=== PATIENT | female | born 1995 | race Caucasian/White ===

== ENCOUNTER → 2017-12-28 14:41 | Outpatient (CLI) | payer OTHER, MEDICAID, SELFPAY ==
[2017-12-28 15:55] LABS: Add Manual Diff / Slide Review NO; Basophils Percent Auto 0.7 % (0-2); Eosinophils Percent Auto 1.9 % (2-4); Hematocrit 38.5 % (36-46); Hemoglobin 13.1 g/dL (12.0-16.0); Lymphocytes Percent Auto 21.9 % (25-40); Mean Corpuscular HGB Conc 33.9 % (30-36); Mean Corpuscular Hemoglobin 28.8 PG (26-34); Mean Corpuscular Volume 84.9 fL (80-100); Monocytes Percent Auto 5.4 % (3-14); Neutrophils Absolute Auto 5300 /uL (3000-5900); Neutrophils Percent Auto 70.1 % (50-75); Platelet Count 245 X10^3/uL (150-400); Red Blood Cell Count 4.54 X10^6/uL (4.0-5.2); Red Cell Distribution Width 13.8 % (11.6-14.8); White Blood Cell Count 7.6 X10^3/uL (4.5-11.0)
[2017-12-28 15:57] LABS: Alanine Aminotransferase 43 IU/L (9-52); Albumin 4.7 g/dL (3.5-5.0); Albumin Globulin Ratio 1.6 (1.0-2.8); Alkaline Phosphatase 58 U/L (38-126); Aspartate Aminotransferase 30 IU/L (14-36); BUN Creatinine Ratio 14.3 (6-22); Bilirubin Total 0.5 mg/dL (0.2-1.3); Blood Urea Nitrogen 10 mg/dL (7-17); Calcium 9.8 mg/dL (8.4-10.2); Carbon Dioxide 27 mmol/L (22-32); Chloride 103 mmol/L (98-107); Estimated Glomerular Filt Rate > 60.0 mL/min (>60); Glucose 118 mg/dL (70-100); HEMOLYSIS < 15 (0-50); Potassium 4.5 mmol/L (3.4-5.1); Sodium 142 mmol/L (137-145); Total Protein 7.7 g/dL (6.3-8.2)
[2017-12-28 16:11] LABS: Free T3, Triiodothyronine Free 3.26 pg/mL (2.77-5.27); Free T4, Direct Thyroxine 1.09 ng/dL (0.78-2.19)
[2017-12-28 16:12] LABS: Vitamin D 25 Hydroxy (D3) 25.2 ng/mL (30.0-100.0)
[2017-12-28 16:25] LABS: Thyroid Stimulating Hormone 2.78 uIU/mL (0.47-4.68)
== END ==
PROVIDERS: PCP Physician Assistant; Visit Provider Physician Assistant
DX: E03.9 Hypothyroidism, unspecified (principal); E55.9 Vitamin D deficiency, unspecified; E66.9 Obesity, unspecified
CPT/HCPCS: 36415; 80053; 82306; 84439; 84443; 84481; 85025

== ENCOUNTER 2018-06-24 19:35 | Emergency (ER) | payer OTHER, MEDICAID, SELFPAY ==
[2018-06-24 19:38] VITALS: BP 125/80; PULSE 83; RESP 18; TEMP 36.6; O2SAT 98; BMI 43.2
--- NOTE | 2018-06-24 20:42 | ED.HA ---
HPI - Headache <JONY High - Last Filed: 06/24/18 22:21> General Chief Complaint: Headache Stated Complaint: DIZZY HEADACHE NAUSEA NUMBNESS OF HEAD AND FEET Time Seen by Provider: 06/24/18 20:13 Source: patient Mode of arrival: ambulatory Limitations: no limitations History of Present Illness HPI Narrative: 22-year-old healthy female that is a nonsmoker here for complaint of a feeling of vertigo and fullness in her head that started this morning. She denies any pain. She does report having some nausea with the vertigo. She denies any ear pain. No vomiting. No fevers no chills. She denies any stressors or relievers of her symptoms. She reports when she turns her head from side to side to quickly that she has increase of her vertigo. She denies any other concerns or complaints at this a timeframe. No chest pain no shortness of breath. Related Data Previous Rx's Medication Instructions Recorded meclizine 25 mg PO BID PRN #14 tab 06/24/18 Allergies Allergy/AdvReac Type Severity Reaction Status Date / Time No Known Drug Allergies Allergy Verified 06/24/18 19:45 Review of Systems <JONY High - Last Filed: 06/24/18 22:21> Constitutional Denies chills, Denies fatigue, Denies fever(s), Denies lethargy and Denies weakness Eyes Denies change in vision, Denies eye discharge, Denies irritation and Denies loss of vision ENT Ears, Nose, Mouth, and Throat: Denies change in voice, Denies neck pain and Denies sore throat Cardiovascular Denies dyspnea and Denies dyspnea on exertion Comments: Vertigo Respiratory Denies cough, Denies dyspnea, Denies dyspnea on exertion and Denies wheezing Gastrointestinal Gastrointestinal: Denies abdominal pain, Denies change in bowel habits, Denies diarrhea, Denies nausea and Denies vomiting Genitourinary Denies hematuria, Denies flank pain, Denies urinary incontinence and Denies urinary urgency Musculoskeletal Denies neck pain Integumentary/Breasts Denies pruritus, Denies erythema, Denies rash and Denies wounds Neurologic Denies confusion, Denies loss of vision and Denies weakness Psychiatric Denies anxiety, Denies confusion, Denies depression, Denies homicidal ideation and Denies suicidal ideation Endocrine Denies fatigue and Denies flushing Hematologic/Lymphatic Denies easy bruising Allergic/Immunologic Denies wheezing Exam <JONY High - Last Filed: 06/24/18 22:21> Initial Vital Signs Initial Vital Signs: Vital Signs Temperature 97.9 F 06/24/18 19:38 Pulse Rate 83 06/24/18 19:38 Respiratory Rate 18 06/24/18 19:38 Blood Pressure 125/80 06/24/18 19:38 Pulse Oximetry 98 06/24/18 19:38 Const General: cooperative and well developed Nutritional Appearance: well nourished Orientation: alert, awake, oriented x3 and not confused HENOK Mouth: oral mucosae normal and mucous membranes abnormal Eyes Conjunctivae: conjunctivae normal Sclera: sclerae normal Pupils: PERRL EOM: EOM intact bilaterally Resp Effort & Inspection: normal respiratory effort, able to speak in complete sentences, no respiratory distress and no use of accessory muscles Auscultation: clear to auscultation bilaterally, no rales, no rhonchi and no wheezes Cardio Rate: regular rate Rhythm: regular rhythm Heart Sounds: no click, no gallops, no murmurs and no rubs Pulses: normal peripheral pulses Skin General: no rashes or lesions noted, No jaundice and No petechiae Neuro General: alert, oriented x3, gait normal and no focal motor deficits Speech: speech normal <Sanjana Cano DO - Last Filed: 06/25/18 00:05> Initial Vital Signs Initial Vital Signs: Vital Signs Temperature 97.9 F 06/24/18 19:38 Pulse Rate 83 06/24/18 19:38 Respiratory Rate 18 06/24/18 19:38 Blood Pressure 125/80 06/24/18 19:38 Pulse Oximetry 98 06/24/18 19:38 Course <JONY High - Last Filed: 06/24/18 22:21> Orders Ordered: ED Orders 06/24/18 20:51 CT head/brain wo con Stat EKG-12 Lead Stat 06/24/18 20:55 XR chest 1V Stat 06/24/18 21:11 Complete Blood Count AUTO DIFF Stat Comprehensive Metabolic Panel Stat Troponin I Stat Discontinued Medications Meclizine HCl (Antivert) 25 mg PO NOW ONE Stop: 06/24/18 20:52 Last Admin: 06/24/18 21:14 Dose: 25 mg Vital Signs - 8 hr 06/24/18 19:38 06/24/18 22:17 Temperature 97.9 F Pulse Rate 83 78 Respiratory Rate 18 14 Blood Pressure 125/80 Blood Pressure [Left Arm] 131/76 Blood Pressure [Right Arm] 131/76 Pulse Oximetry 98 100 <Sanjana Cano DO - Last Filed: 06/25/18 00:05> Orders Ordered: ED Orders 06/24/18 20:51 CT head/brain wo con Stat EKG-12 Lead Stat 06/24/18 20:55 XR chest 1V Stat 06/24/18 21:11 Complete Blood Count AUTO DIFF Stat Comprehensive Metabolic Panel Stat Troponin I Stat Discontinued Medications Meclizine HCl (Antivert) 25 mg PO NOW ONE Stop: 06/24/18 20:52 Last Admin: 06/24/18 21:14 Dose: 25 mg Vital Signs - 8 hr 06/24/18 19:38 06/24/18 22:17 Temperature 97.9 F Pulse Rate 83 78 Respiratory Rate 18 14 Blood Pressure 125/80 Blood Pressure [Left Arm] 131/76 Blood Pressure [Right Arm] 131/76 Pulse Oximetry 98 100 MDM - Headache <JONY High - Last Filed: 06/24/18 22:21> Lab Data Result diagrams: 06/24/18 21:11 06/24/18 21:11 Lab Results 06/24/18 06/24/18 Range/Units 21:11 21:11 WBC 8.2 (4.5-11.0) X10^3/uL RBC 4.55 (4.0-5.2) X10^6/uL Hgb 13.0 (12.0-16.0) g/dL Hct 38.2 (36-46) % MCV 83.8 (80-100) fL MCH 28.5 (26-34) PG MCHC 33.9 (30-36) % RDW 13.5 (11.6-14.8) % Plt Count 267 (150-400) X10^3/uL Neut % (Auto) 61.1 (50-75) % Lymph % (Auto) 28.5 (25-40) % [place] % (Auto) 7.0 (3-14) % Eos % (Auto) 2.4 (2-4) % Baso % (Auto) 1.0 (0-2) % Neut # (Auto) 5000 (2359-3168) /uL Lymph # (Auto) 2300 (6159-5251) /uL [place] # (Auto) 600 (0-900) /uL Eos # (Auto) 200 (0-450) /uL Baso # (Auto) 100 (0-100) /uL Sodium 140 (137-145) mmol/L Potassium 4.1 (3.4-5.1) mmol/L Chloride 100 (98-107) mmol/L Carbon Dioxide 27 (22-32) mmol/L BUN 14 (7-17) mg/dL Creatinine 0.80 (0.52-1.04) mg/dL Estimated GFR > 60.0 (>60) mL/min BUN/Creatinine Ratio 17.5 (6-22) Glucose 92 (70-100) mg/dL Calcium 9.7 (8.4-10.2) mg/dL Total Bilirubin 0.3 (0.2-1.3) mg/dL AST 32 (14-36) IU/L ALT 42 (9-52) IU/L Alkaline Phosphatase 60 (38-126) U/L Troponin I < 0.012 (0.01-0.034) ng/mL Total Protein 8.8 H (6.3-8.2) g/dL Albumin 4.9 (3.5-5.0) g/dL Globulin 3.9 (1.7-4.1) g/dL Albumin/Globulin Ratio 1.3 (1.0-2.8) Imaging Data CT scan - head: Radiologist's impression: [address] [address] [address] Scan Report Signed Patient: Libra Pastrana [facility]#: [id number] : 1995Acct:[id number] Age/Sex: FDate of Service: 06/24/18 Loc: ED Accession Number: [id number] Procedure: CT head/brain wo con Ordering Provider: Tejas Loco PROCEDURE: CT HEAD/BRAIN WO CON INDICATIONS: Vertigo TECHNIQUE: Noncontrast 4.5 mm thick angled axial sections acquired from the foramen magnum to the vertex, with coronal and sagittal reformats. For radiation dose reduction, the following was used: automated exposure control, adjustment of mA and/or kV according to patient size. COMPARISON: None. FINDINGS: Image quality: Excellent. CSF spaces: Basal cisterns are patent. No extra-axial fluid collections. Ventricles are normal in size and shape. Brain: No midline shift. No intracranial masses or hemorrhage. Prakash-white matter interface is normal. Skull and face: Calvarium and visualized facial bones are intact, without suspicious lesions. Sinuses: Visualized sinuses and mastoids are clear. IMPRESSION: Normal head CT. Dictated by: Tiesha Bryson M.D. on 06/24/2018 at 21:34 Approved by: Tiesha Bryson M.D. on 06/24/2018 at 21:36 Chest x-ray: Radiologist's impression: [address] [place] [id number] XRay Report Signed Patient: Libra Pastrana AMR#: [id number] : 1995Acct:[id number] Age/Sex: 22 / FDate of Service: 06/24/18 Loc: ED Accession Number: [id number] Procedure: XR chest 1V Ordering Provider: Tejas Loco PROCEDURE: XR CHEST 1V INDICATIONS: Vertigo dizziness TECHNIQUE: One view of the chest was acquired. COMPARISON: None. FINDINGS: Surgical changes and devices: None. Lungs and pleura: No pleural effusions or pneumothorax. Lungs are clear. Mediastinum: Mediastinal contours appear normal. Heart size is normal. Bones and chest wall: No suspicious bony lesions. Overlying soft tissues appear unremarkable. IMPRESSION: No acute cardiopulmonary disease. Dictated by: Tiesha Bryson M.D. on 06/24/2018 at 21:50 Approved by: Tiesha Bryson M.D. on 06/24/2018 at 21:51 ECG Data Interpretation: EKG shows normal sinus rhythm with no ST elevation or depression. No ectopy. Ventricular rate is 70. Pr interval 160. QRS duration 92. QTC of 406. MDM Narrative Medical decision making narrative: CT of the head was obtained was negative for any acute findings. Chest x-ray was obtained was also negative for any acute findings. EKG shows normal sinus rhythm with no ST elevation or depression. No ectopy. CBC and Chem panel were obtained were unremarkable. Cardiac enzymes were obtained were also unremarkable. She was given meclizine which helped her symptoms. Will treat for BPPV with instructions for modified Caleb maneuver the home and also meclizine. Follow up with primary care provider later this week for re-evaluation. For any worsening symptoms return to the emergency room. <Sanjana Cano, - Last Filed: 06/25/18 00:05> Lab Data Lab Results 06/24/18 06/24/18 Range/Units 21:11 21:11 WBC 8.2 (4.5-11.0) X10^3/uL RBC 4.55 (4.0-5.2) X10^6/uL Hgb 13.0 (12.0-16.0) g/dL Hct 38.2 (36-46) % MCV 83.8 (80-100) fL MCH 28.5 (26-34) PG MCHC 33.9 (30-36) % RDW 13.5 (11.6-14.8) % Plt Count 267 (150-400) X10^3/uL Neut % (Auto) 61.1 (50-75) % Lymph % (Auto) 28.5 (25-40) % [place] % (Auto) 7.0 (3-14) % Eos % (Auto) 2.4 (2-4) % Baso % (Auto) 1.0 (0-2) % Neut # (Auto) 5000 (3333-8024) /uL Lymph # (Auto) 2300 (4088-4381) /uL [place] # (Auto) 600 (0-900) /uL Eos # (Auto) 200 (0-450) /uL Baso # (Auto) 100 (0-100) /uL Sodium 140 (137-145) mmol/L Potassium 4.1 (3.4-5.1) mmol/L Chloride 100 (98-107) mmol/L Carbon Dioxide 27 (22-32) mmol/L BUN 14 (7-17) mg/dL Creatinine 0.80 (0.52-1.04) mg/dL Estimated GFR > 60.0 (>60) mL/min BUN/Creatinine Ratio 17.5 (6-22) Glucose 92 (70-100) mg/dL Calcium 9.7 (8.4-10.2) mg/dL Total Bilirubin 0.3 (0.2-1.3) mg/dL AST 32 (14-36) IU/L ALT 42 (9-52) IU/L Alkaline Phosphatase 60 (38-126) U/L Troponin I < 0.012 (0.01-0.034) ng/mL Total Protein 8.8 H (6.3-8.2) g/dL Albumin 4.9 (3.5-5.0) g/dL Globulin 3.9 (1.7-4.1) g/dL Albumin/Globulin Ratio 1.3 (1.0-2.8) Discharge Plan Departure Patient Disposition: Home Clinical Impression: BPPV (benign paroxysmal positional vertigo) Discharge Date/Time: 06/24/18 22:23 Interventions: ED Discharge Assessment Last Done: 06/24/18 22:22 Instructions: DI for Benign Paroxysmal Positional Vertigo Activity Restrictions/Additional Instructions: Laboratory results and imaging today were unremarkable. Signs and symptoms presents as a vertigo. You are placed on a medication called meclizine to help with your symptoms. Perform Apley's maneuvers as instructed by print out. Follow up with primary care provider in the next few days for re-evaluation. For any worsening symptoms return to the emergency room. Prescriptions: New meclizine 25 mg tablet 25 mg PO BID PRN (Reason: dizziness) Qty: 14 RF: 0 Referrals: Kendra Alicea PA-C [Primary Care Provider] - <Sanjana Cano DO - Last Filed: 06/25/18 00:05> Cosign ED Attending Jakeature Attestation: I was immediately available in the department for consultation. This documentation has been reviewed and I agree with assessment and plan. Supervised by Sanjana Cano DO
--- NOTE | 2018-06-24 20:51 | DI.CT.S_ITS ---
PROCEDURE: CT HEAD/BRAIN WO CON INDICATIONS: Vertigo TECHNIQUE: Noncontrast 4.5 mm thick angled axial sections acquired from the foramen magnum to the vertex, with coronal and sagittal reformats. For radiation dose reduction, the following was used: automated exposure control, adjustment of mA and/or kV according to patient size. COMPARISON: None. FINDINGS: Image quality: Excellent. CSF spaces: Basal cisterns are patent. No extra-axial fluid collections. Ventricles are normal in size and shape. Brain: No midline shift. No intracranial masses or hemorrhage. Prakash-white matter interface is normal. Skull and face: Calvarium and visualized facial bones are intact, without suspicious lesions. Sinuses: Visualized sinuses and mastoids are clear. IMPRESSION: Normal head CT. Dictated by: Tiesha Bryson M.D. on 06/24/2018 at 21:34 Approved by: Tiesha Bryson M.D. on 06/24/2018 at 21:36
--- NOTE | 2018-06-24 20:55 | DI.RAD.S_ITS ---
PROCEDURE: XR CHEST 1V INDICATIONS: Vertigo dizziness TECHNIQUE: One view of the chest was acquired. COMPARISON: None. FINDINGS: Surgical changes and devices: None. Lungs and pleura: No pleural effusions or pneumothorax. Lungs are clear. Mediastinum: Mediastinal contours appear normal. Heart size is normal. Bones and chest wall: No suspicious bony lesions. Overlying soft tissues appear unremarkable. IMPRESSION: No acute cardiopulmonary disease. Dictated by: Tiesha Bryson M.D. on 06/24/2018 at 21:50 Approved by: Tiesha Bryson M.D. on 06/24/2018 at 21:51
[2018-06-24] MEDS: MECLIZINE HCL 12.5 MG TABLET 25 MG PO (21:14)
[2018-06-24 21:17] LABS: Add Manual Diff / Slide Review NO; Basophils Absolute Auto 100 /uL (0-100); Eosinophils Absolute Auto 200 /uL (0-450); Eosinophils Percent Auto 2.4 % (2-4); Hematocrit 38.2 % (36-46); Lymphocytes Absolute Auto 2300 /uL (1100-4500); Lymphocytes Percent Auto 28.5 % (25-40); Mean Corpuscular HGB Conc 33.9 % (30-36); Mean Corpuscular Hemoglobin 28.5 PG (26-34); Mean Corpuscular Volume 83.8 fL (80-100); Monocytes Absolute Auto 600 /uL (0-900); Neutrophils Absolute Auto 5000 /uL (1500-7000); Neutrophils Percent Auto 61.1 % (50-75); Platelet Count 267 X10^3/uL (150-400); Red Blood Cell Count 4.55 X10^6/uL (4.0-5.2); Red Cell Distribution Width 13.5 % (11.6-14.8); White Blood Cell Count 8.2 X10^3/uL (4.5-11.0)
[2018-06-24 21:34] LABS: Alanine Aminotransferase 42 IU/L (9-52); Albumin 4.9 g/dL (3.5-5.0); Albumin Globulin Ratio 1.3 (1.0-2.8); Alkaline Phosphatase 60 U/L (38-126); Aspartate Aminotransferase 32 IU/L (14-36); BUN Creatinine Ratio 17.5 (6-22); Bilirubin Total 0.3 mg/dL (0.2-1.3); Blood Urea Nitrogen 14 mg/dL (7-17); Calcium 9.7 mg/dL (8.4-10.2); Carbon Dioxide 27 mmol/L (22-32); Chloride 100 mmol/L (98-107); Estimated Glomerular Filt Rate > 60.0 mL/min (>60); Globulin 3.9 g/dL (1.7-4.1); Glucose 92 mg/dL (70-100); HEMOLYSIS < 15 (0-50); Potassium 4.1 mmol/L (3.4-5.1); Sodium 140 mmol/L (137-145); Total Protein 8.8 g/dL (6.3-8.2)
[2018-06-24 21:48] LABS: Troponin I < 0.012 ng/mL (0.01-0.034)
--- NOTE | 2018-06-24 22:12 | ED_ITS ---
HPI - Headache <JONY High - Last Filed: 06/24/18 22:21> General Chief Complaint: Headache Stated Complaint: DIZZY HEADACHE NAUSEA NUMBNESS OF HEAD AND FEET Time Seen by Provider: 06/24/18 20:13 Source: patient Mode of arrival: ambulatory Limitations: no limitations History of Present Illness HPI Narrative: 22-year-old healthy female that is a nonsmoker here for complaint of a feeling of vertigo and fullness in her head that started this morning. She denies any pain. She does report having some nausea with the vertigo. She denies any ear pain. No vomiting. No fevers no chills. She denies any stressors or relievers of her symptoms. She reports when she turns her head from side to side to quickly that she has increase of her vertigo. She denies any other concerns or complaints at this a timeframe. No chest pain no shortness of breath. Related Data Previous Rx's Medication Instructions Recorded meclizine 25 mg PO BID PRN #14 tab 06/24/18 Allergies Allergy/AdvReac Type Severity Reaction Status Date / Time No Known Drug Allergies Allergy Verified 06/24/18 19:45 Review of Systems <JONY High - Last Filed: 06/24/18 22:21> Constitutional Denies chills, Denies fatigue, Denies fever(s), Denies lethargy and Denies weakness Eyes Denies change in vision, Denies eye discharge, Denies irritation and Denies loss of vision ENT Ears, Nose, Mouth, and Throat: Denies change in voice, Denies neck pain and Denies sore throat Cardiovascular Denies dyspnea and Denies dyspnea on exertion Comments: Vertigo Respiratory Denies cough, Denies dyspnea, Denies dyspnea on exertion and Denies wheezing Gastrointestinal Gastrointestinal: Denies abdominal pain, Denies change in bowel habits, Denies diarrhea, Denies nausea and Denies vomiting Genitourinary Denies hematuria, Denies flank pain, Denies urinary incontinence and Denies urinary urgency Musculoskeletal Denies neck pain Integumentary/Breasts Denies pruritus, Denies erythema, Denies rash and Denies wounds Neurologic Denies confusion, Denies loss of vision and Denies weakness Psychiatric Denies anxiety, Denies confusion, Denies depression, Denies homicidal ideation and Denies suicidal ideation Endocrine Denies fatigue and Denies flushing Hematologic/Lymphatic Denies easy bruising Allergic/Immunologic Denies wheezing Exam <JONY High - Last Filed: 06/24/18 22:21> Initial Vital Signs Initial Vital Signs: Vital Signs Temperature 97.9 F 06/24/18 19:38 Pulse Rate 83 06/24/18 19:38 Respiratory Rate 18 06/24/18 19:38 Blood Pressure 125/80 06/24/18 19:38 Pulse Oximetry 98 06/24/18 19:38 Const General: cooperative and well developed Nutritional Appearance: well nourished Orientation: alert, awake, oriented x3 and not confused HENME Mouth: oral mucosae normal and mucous membranes abnormal Eyes Conjunctivae: conjunctivae normal Sclera: sclerae normal Pupils: PERRL EOM: EOM intact bilaterally Resp Effort & Inspection: normal respiratory effort, able to speak in complete sentences, no respiratory distress and no use of accessory muscles Auscultation: clear to auscultation bilaterally, no rales, no rhonchi and no wheezes Cardio Rate: regular rate Rhythm: regular rhythm Heart Sounds: no click, no gallops, no murmurs and no rubs Pulses: normal peripheral pulses Skin General: no rashes or lesions noted, No jaundice and No petechiae Neuro General: alert, oriented x3, gait normal and no focal motor deficits Speech: speech normal <Sanjana Cano DO - Last Filed: 06/25/18 00:05> Initial Vital Signs Initial Vital Signs: Vital Signs Temperature 97.9 F 06/24/18 19:38 Pulse Rate 83 06/24/18 19:38 Respiratory Rate 18 06/24/18 19:38 Blood Pressure 125/80 06/24/18 19:38 Pulse Oximetry 98 06/24/18 19:38 Course <JONY High - Last Filed: 06/24/18 22:21> Orders Ordered: ED Orders 06/24/18 20:51 CT head/brain wo con Stat EKG-12 Lead Stat 06/24/18 20:55 XR chest 1V Stat 06/24/18 21:11 Complete Blood Count AUTO DIFF Stat Comprehensive Metabolic Panel Stat Troponin I Stat Discontinued Medications Meclizine HCl (Antivert) 25 mg PO NOW ONE Stop: 06/24/18 20:52 Last Admin: 06/24/18 21:14 Dose: 25 mg Vital Signs - 8 hr 06/24/18 19:38 06/24/18 22:17 Temperature 97.9 F Pulse Rate 83 78 Respiratory Rate 18 14 Blood Pressure 125/80 Blood Pressure [Left Arm] 131/76 Blood Pressure [Right Arm] 131/76 Pulse Oximetry 98 100 <Sanjana Cano DO - Last Filed: 06/25/18 00:05> Orders Ordered: ED Orders 06/24/18 20:51 CT head/brain wo con Stat EKG-12 Lead Stat 06/24/18 20:55 XR chest 1V Stat 06/24/18 21:11 Complete Blood Count AUTO DIFF Stat Comprehensive Metabolic Panel Stat Troponin I Stat Discontinued Medications Meclizine HCl (Antivert) 25 mg PO NOW ONE Stop: 06/24/18 20:52 Last Admin: 06/24/18 21:14 Dose: 25 mg Vital Signs - 8 hr 06/24/18 19:38 06/24/18 22:17 Temperature 97.9 F Pulse Rate 83 78 Respiratory Rate 18 14 Blood Pressure 125/80 Blood Pressure [Left Arm] 131/76 Blood Pressure [Right Arm] 131/76 Pulse Oximetry 98 100 MDM - Headache <JONY High - Last Filed: 06/24/18 22:21> Lab Data Result diagrams: 06/24/18 21:11 06/24/18 21:11 Lab Results 06/24/18 06/24/18 Range/Units 21:11 21:11 WBC 8.2 (4.5-11.0) X10^3/uL RBC 4.55 (4.0-5.2) X10^6/uL Hgb 13.0 (12.0-16.0) g/dL Hct 38.2 (36-46) % MCV 83.8 (80-100) fL MCH 28.5 (26-34) PG MCHC 33.9 (30-36) % RDW 13.5 (11.6-14.8) % Plt Count 267 (150-400) X10^3/uL Neut % (Auto) 61.1 (50-75) % Lymph % (Auto) 28.5 (25-40) % [place] % (Auto) 7.0 (3-14) % Eos % (Auto) 2.4 (2-4) % Baso % (Auto) 1.0 (0-2) % Neut # (Auto) 5000 (1800-8448) /uL Lymph # (Auto) 2300 (7928-9385) /uL [place] # (Auto) 600 (0-900) /uL Eos # (Auto) 200 (0-450) /uL Baso # (Auto) 100 (0-100) /uL Sodium 140 (137-145) mmol/L Potassium 4.1 (3.4-5.1) mmol/L Chloride 100 (98-107) mmol/L Carbon Dioxide 27 (22-32) mmol/L BUN 14 (7-17) mg/dL Creatinine 0.80 (0.52-1.04) mg/dL Estimated GFR > 60.0 (>60) mL/min BUN/Creatinine Ratio 17.5 (6-22) Glucose 92 (70-100) mg/dL Calcium 9.7 (8.4-10.2) mg/dL Total Bilirubin 0.3 (0.2-1.3) mg/dL AST 32 (14-36) IU/L ALT 42 (9-52) IU/L Alkaline Phosphatase 60 (38-126) U/L Troponin I < 0.012 (0.01-0.034) ng/mL Total Protein 8.8 H (6.3-8.2) g/dL Albumin 4.9 (3.5-5.0) g/dL Globulin 3.9 (1.7-4.1) g/dL Albumin/Globulin Ratio 1.3 (1.0-2.8) Imaging Data CT scan - head: Radiologist's impression: [address] [address] [address] Scan Report Signed Patient: Libra Pastrana AMR#: [id number] : 1995Acct:[id number] Age/Sex: FDate of Service: 06/24/18 Loc: ED Accession Number: [id number] Procedure: CT head/brain wo con Ordering Provider: Tejas Loco PROCEDURE: CT HEAD/BRAIN WO CON INDICATIONS: Vertigo TECHNIQUE: Noncontrast 4.5 mm thick angled axial sections acquired from the foramen magnum to the vertex, with coronal and sagittal reformats. For radiation dose reduction, the following was used: automated exposure control, adjustment of mA and/or kV according to patient size. COMPARISON: None. FINDINGS: Image quality: Excellent. CSF spaces: Basal cisterns are patent. No extra-axial fluid collections. Ventricles are normal in size and shape. Brain: No midline shift. No intracranial masses or hemorrhage. Prakash-white matter interface is normal. Skull and face: Calvarium and visualized facial bones are intact, without suspicious lesions. Sinuses: Visualized sinuses and mastoids are clear. IMPRESSION: Normal head CT. Dictated by: Tiesha Bryson M.D. on 06/24/2018 at 21:34 Approved by: Tiesha Bryson M.D. on 06/24/2018 at 21:36 Chest x-ray: Radiologist's impression: [address] [place] [id number] XRay Report Signed Patient: Libra Pastrana AMR#: [id number] : 1995Acct:[id number] Age/Sex: 22 / FDate of Service: 06/24/18 Loc: ED Accession Number: [id number] Procedure: XR chest 1V Ordering Provider: Tejas Loco PROCEDURE: XR CHEST 1V INDICATIONS: Vertigo dizziness TECHNIQUE: One view of the chest was acquired. COMPARISON: None. FINDINGS: Surgical changes and devices: None. Lungs and pleura: No pleural effusions or pneumothorax. Lungs are clear. Mediastinum: Mediastinal contours appear normal. Heart size is normal. Bones and chest wall: No suspicious bony lesions. Overlying soft tissues appear unremarkable. IMPRESSION: No acute cardiopulmonary disease. Dictated by: Tiesha Bryson M.D. on 06/24/2018 at 21:50 Approved by: Tiesha Bryson M.D. on 06/24/2018 at 21:51 ECG Data Interpretation: EKG shows normal sinus rhythm with no ST elevation or depression. No ectopy. Ventricular rate is 70. Pr interval 160. QRS duration 92. QTC of 406. MDM Narrative Medical decision making narrative: CT of the head was obtained was negative for any acute findings. Chest x-ray was obtained was also negative for any acute findings. EKG shows normal sinus rhythm with no ST elevation or depression. No ectopy. CBC and Chem panel were obtained were unremarkable. Cardiac enzymes were obtained were also unremarkable. She was given meclizine which helped her symptoms. Will treat for BPPV with instructions for modified Caleb maneuver the home and also meclizine. Follow up with primary care provider later this week for re-evaluation. For any worsening symptoms return to the emergency room. <Sanjana Cano, - Last Filed: 06/25/18 00:05> Lab Data Lab Results 06/24/18 06/24/18 Range/Units 21:11 21:11 WBC 8.2 (4.5-11.0) X10^3/uL RBC 4.55 (4.0-5.2) X10^6/uL Hgb 13.0 (12.0-16.0) g/dL Hct 38.2 (36-46) % MCV 83.8 (80-100) fL MCH 28.5 (26-34) PG MCHC 33.9 (30-36) % RDW 13.5 (11.6-14.8) % Plt Count 267 (150-400) X10^3/uL Neut % (Auto) 61.1 (50-75) % Lymph % (Auto) 28.5 (25-40) % [place] % (Auto) 7.0 (3-14) % Eos % (Auto) 2.4 (2-4) % Baso % (Auto) 1.0 (0-2) % Neut # (Auto) 5000 (3484-9886) /uL Lymph # (Auto) 2300 (6109-9596) /uL [place] # (Auto) 600 (0-900) /uL Eos # (Auto) 200 (0-450) /uL Baso # (Auto) 100 (0-100) /uL Sodium 140 (137-145) mmol/L Potassium 4.1 (3.4-5.1) mmol/L Chloride 100 (98-107) mmol/L Carbon Dioxide 27 (22-32) mmol/L BUN 14 (7-17) mg/dL Creatinine 0.80 (0.52-1.04) mg/dL Estimated GFR > 60.0 (>60) mL/min BUN/Creatinine Ratio 17.5 (6-22) Glucose 92 (70-100) mg/dL Calcium 9.7 (8.4-10.2) mg/dL Total Bilirubin 0.3 (0.2-1.3) mg/dL AST 32 (14-36) IU/L ALT 42 (9-52) IU/L Alkaline Phosphatase 60 (38-126) U/L Troponin I < 0.012 (0.01-0.034) ng/mL Total Protein 8.8 H (6.3-8.2) g/dL Albumin 4.9 (3.5-5.0) g/dL Globulin 3.9 (1.7-4.1) g/dL Albumin/Globulin Ratio 1.3 (1.0-2.8) Discharge Plan Departure Patient Disposition: Home Clinical Impression: BPPV (benign paroxysmal positional vertigo) Discharge Date/Time: 06/24/18 22:23 Interventions: ED Discharge Assessment Last Done: 06/24/18 22:22 Instructions: DI for Benign Paroxysmal Positional Vertigo Activity Restrictions/Additional Instructions: Laboratory results and imaging today were unremarkable. Signs and symptoms presents as a vertigo. You are placed on a medication called meclizine to help with your symptoms. Perform Apley's maneuvers as instructed by print out. Follow up with primary care provider in the next few days for re-evaluation. For any worsening symptoms return to the emergency room. Prescriptions: New meclizine 25 mg tablet 25 mg PO BID PRN (Reason: dizziness) Qty: 14 RF: 0 Referrals: Kendra Alicea PA-C [Primary Care Provider] - <Sanjana Cano DO - Last Filed: 06/25/18 00:05> Cosign ED Attending Jakeature Attestation: I was immediately available in the department for consultation. This documentation has been reviewed and I agree with assessment and plan. Supervised by Sanjana Cano DO
[2018-06-24 22:17] VITALS: BP 131/76; PULSE 78; PULSE 80; RESP 14; O2SAT 100; O2SAT 99
== END 2018-06-24 22:23 | disposition home or self-care (01) ==
PROVIDERS: Emergency Provider Nurse Practitioner Family; PCP Physician Assistant
DX: H81.10 Benign paroxysmal vertigo, unspecified ear (principal)
CPT/HCPCS: 36415; 70450; 71045; 80053; 84484; 85025; 93005; 93010; 99282; 99285

== ENCOUNTER → 2018-07-14 14:30 | Outpatient (CLI) | payer OTHER, MEDICAID, SELFPAY ==
[2018-07-14 15:20] LABS: Add Manual Diff / Slide Review NO; Basophils Absolute Auto 100 /uL (0-100); Basophils Percent Auto 0.9 % (0-2); Eosinophils Absolute Auto 100 /uL (0-450); Eosinophils Percent Auto 1.5 % (2-4); Hematocrit 37.9 % (36-46); Hemoglobin 12.8 g/dL (12.0-16.0); Lymphocytes Absolute Auto 2300 /uL (1100-4500); Lymphocytes Percent Auto 28.2 % (25-40); Mean Corpuscular HGB Conc 33.9 % (30-36); Mean Corpuscular Hemoglobin 28.1 PG (26-34); Monocytes Absolute Auto 600 /uL (0-900); Monocytes Percent Auto 6.9 % (3-14); Neutrophils Absolute Auto 5000 /uL (1500-7000); Neutrophils Percent Auto 62.5 % (50-75); Platelet Count 237 X10^3/uL (150-400); Red Blood Cell Count 4.56 X10^6/uL (4.0-5.2); Red Cell Distribution Width 14.2 % (11.6-14.8)
[2018-07-14 15:28] LABS: Alanine Aminotransferase 33 IU/L (9-52); Albumin 4.8 g/dL (3.5-5.0); Albumin Globulin Ratio 1.3 (1.0-2.8); Alkaline Phosphatase 59 U/L (38-126); Aspartate Aminotransferase 22 IU/L (14-36); Bilirubin Total 0.4 mg/dL (0.2-1.3); Blood Urea Nitrogen 16 mg/dL (7-17); Calcium 9.5 mg/dL (8.4-10.2); Carbon Dioxide 25 mmol/L (22-32); Chloride 101 mmol/L (98-107); Estimated Glomerular Filt Rate > 60.0 mL/min (>60); Globulin 3.8 g/dL (1.7-4.1); Glucose 105 mg/dL (70-100); HEMOLYSIS < 15 (0-50); Potassium 4.2 mmol/L (3.4-5.1); Sodium 138 mmol/L (137-145); Total Protein 8.6 g/dL (6.3-8.2)
[2018-07-14 15:43] LABS: Vitamin D 25 Hydroxy (D3) 26.7 ng/mL (30.0-100.0)
[2018-07-14 15:46] LABS: Free T3, Triiodothyronine Free 2.66 pg/mL (2.77-5.27); Free T4, Direct Thyroxine 0.84 ng/dL (0.78-2.19)
[2018-07-19 14:16] LABS: Thyroid Peroxidase Antibodies 388 IU/mL (< 9)
== END ==
PROVIDERS: PCP Physician Assistant; Visit Provider Physician Assistant
DX: E55.9 Vitamin D deficiency, unspecified (principal); E03.9 Hypothyroidism, unspecified
CPT/HCPCS: 36415; 80053; 82306; 84439; 84443; 84481; 85025; 86376

== ENCOUNTER → 2018-10-12 12:13 | Outpatient (CLI) | payer OTHER, MEDICAID, SELFPAY ==
[2018-10-12 14:21] LABS: Thyroid Stimulating Hormone 2.84 uIU/mL (0.47-4.68)
== END ==
PROVIDERS: PCP Physician Assistant; Visit Provider Physician Assistant
DX: E03.9 Hypothyroidism, unspecified (principal)
CPT/HCPCS: 36415; 84443

== ENCOUNTER → 2019-08-09 13:21 | Outpatient (ROUT) | payer OTHER, MEDICAID, SELFPAY ==
[2019-08-09 13:47] LABS: Alanine Aminotransferase 16 IU/L (<35); Albumin 4.7 g/dL (3.5-5.0); Albumin Globulin Ratio 1.4 (1.0-2.8); Alkaline Phosphatase 76 U/L (38-126); Aspartate Aminotransferase 23 IU/L (14-36); BUN Creatinine Ratio 18.3 (6-22); Bilirubin Total 0.4 mg/dL (0.2-1.3); Blood Urea Nitrogen 13 mg/dL (7-17); Calcium 9.8 mg/dL (8.4-10.2); Carbon Dioxide 26 mmol/L (22-32); Chloride 103 mmol/L (98-107); Estimated Glomerular Filt Rate > 60.0 mL/min (>60); Globulin 3.3 g/dL (1.7-4.1); Glucose 93 mg/dL (70-100); HEMOLYSIS < 15 (0-50); Potassium 4.3 mmol/L (3.4-5.1); Sodium 139 mmol/L (137-145)
[2019-08-09 14:08] LABS: Hematocrit 38.6 % (36-46); Mean Corpuscular HGB Conc 33.7 % (30-36); Mean Corpuscular Hemoglobin 29.7 PG (26-34); Mean Corpuscular Volume 88.1 fL (80-100); Platelet Count 228 X10^3/uL (150-400); Red Blood Cell Count 4.38 X10^6/uL (4.0-5.2); Red Cell Distribution Width 14.1 % (11.6-14.8); White Blood Cell Count 7.3 X10^3/uL (4.5-11.0)
[2019-08-09 14:17] LABS: TSH w/ Reflex to FT4 1.67 uIU/mL (0.47-4.68)
[2019-08-09 14:20] LABS: Add Manual Diff / Slide Review YES
[2019-08-09 14:42] LABS: Neutrophils Absolute Manual 4161 /uL (3000-5900); Total Cells Counted 100
[2019-08-09 14:44] LABS: Poikilocytosis 1+
[2019-08-09 18:08] LABS: Vitamin D 25 Hydroxy (D3) 24.8 ng/mL (30.0-100.0)
== END ==
PROVIDERS: PCP Physician Assistant; Visit Provider Physician Assistant
DX: E55.9 Vitamin D deficiency, unspecified (principal); E03.9 Hypothyroidism, unspecified
CPT/HCPCS: 80053; 82306; 84443; 85025

== ENCOUNTER → 2020-10-08 14:28 | Outpatient (ROUT) | payer OTHER, MEDICAID, SELFPAY ==
[2020-10-08 15:43] LABS: Add Manual Diff / Slide Review NO; Basophils Absolute Auto 100 /uL (0-100); Basophils Percent Auto 1.2 % (0-2); Eosinophils Absolute Auto 300 /uL (0-450); Eosinophils Percent Auto 4.1 % (2-4); Hematocrit 38.7 % (36-46); Lymphocytes Absolute Auto 2200 /uL (1100-4500); Lymphocytes Percent Auto 28.4 % (25-40); Mean Corpuscular HGB Conc 33.7 % (30-36); Mean Corpuscular Hemoglobin 29.5 PG (26-34); Mean Corpuscular Volume 87.5 fL (80-100); Monocytes Absolute Auto 500 /uL (0-900); Monocytes Percent Auto 6.3 % (3-14); Neutrophils Absolute Auto 4700 /uL (1500-7000); Platelet Count 204 X10^3/uL (150-400); Red Blood Cell Count 4.42 X10^6/uL (4.0-5.2); White Blood Cell Count 7.8 X10^3/uL (4.5-11.0)
[2020-10-08 15:51] LABS: Alanine Aminotransferase 18 IU/L (<35); Albumin 4.4 g/dL (3.5-5.0); Albumin Globulin Ratio 1.4 (1.0-2.8); Alkaline Phosphatase 55 U/L (38-126); Aspartate Aminotransferase 25 IU/L (14-36); BUN Creatinine Ratio 18.7 (6-22); Bilirubin Total 0.4 mg/dL (0.2-1.3); Blood Urea Nitrogen 14 mg/dL (7-17); Calcium 9.6 mg/dL (8.4-10.2); Carbon Dioxide 27 mmol/L (22-32); Chloride 102 mmol/L (98-107); Estimated Glomerular Filt Rate > 60.0 mL/min (>60); Globulin 3.1 g/dL (1.7-4.1); Glucose 103 mg/dL (70-100); HEMOLYSIS < 15 (0-50); Potassium 4.4 mmol/L (3.4-5.1); Sodium 138 mmol/L (137-145); Total Protein 7.5 g/dL (6.3-8.2)
[2020-10-08 16:08] LABS: HEMOLYSIS < 15 (0-50)
[2020-10-08 16:20] LABS: Ferritin 53 ng/mL (6-137)
[2020-10-08 16:32] LABS: Vitamin D 25 Hydroxy (D3) 84.5 ng/mL (30.0-100.0)
[2020-10-08 17:15] LABS: TSH w/ Reflex to FT4 2.52 uIU/mL (0.47-4.68)
[2020-10-08 23:11] LABS: Iron 81 ug/dL (37-170)
[2020-10-08 23:22] LABS: Percent Iron Saturation 21 % (15-50); Total Iron Binding Capacity 388 ug/dL (265-497); Transferrin 304 mg/dL (206-381)
== END ==
PROVIDERS: PCP Physician Assistant; Visit Provider Physician Assistant
DX: E55.9 Vitamin D deficiency, unspecified (principal); E03.9 Hypothyroidism, unspecified; E66.9 Obesity, unspecified
CPT/HCPCS: 80053; 82306; 82728; 83540; 83550; 84443; 85025